=== PATIENT | male | born 1940 | race Hispanic/Latino ===

== ENCOUNTER 2017-08-25 07:01 | Day surgery (SDC) | payer MEDICARE ==
[2017-08-19 11:00] VITALS: BMI 32.5
--- NOTE | 2017-08-25 04:17 | HP ---
REASON FOR ADMISSION: Left heart catheterization, possible angioplasty. BRIEF HISTORY: This is a 76-year-old male with past medical history significant for obstructive sleep apnea; chronic atrial fibrillation in 2004; status post bariatric surgery in 2013; obesity; status post hip surgery in 2003; status post right SFA stent by Dr. Solano in 1998, complaining of dyspnea on exertion, chest pain, and shortness of breath. The patient underwent a stress test that was abnormal, so the patient was scheduled for elective cardiac cath, possible angioplasty. PAST MEDICAL HISTORY: Significant for chronic atrial fibrillation; history of coronary artery disease [address] Bose at [facility] with nonobstructive coronary artery disease; history of permanent pacemaker; history of chronic atrial fibrillation. PAST SURGICAL HISTORY: Significant for permanent pacemaker; history of bariatric surgery, history of obesity; history of right hip surgery; history of pacemaker in 1998; history of PAD, status post lower extremity right SFA stent. SOCIAL HISTORY: Denies any history of alcohol abuse. CURRENT MEDICATIONS: The patient is taking metoprolol tartrate 50 mg twice a day; Eliquis 5 mg b.i.d.; Nexium 40 mg, Eliquis two days ago. ALLERGIES: NO KNOWN DRUG ALLERGIES. REVIEW OF SYSTEMS: As per HPI. PREVIOUS CARDIAC WORKUP: Examination of previous cardiac workup as follows: The patient had a stress test dated 05/20/2017 that showed heterogeneous diffuse hypokinesis, abnormal myocardial perfusion study, ejection fraction of 35%. The patient had echocardiography that showed ejection fraction of 27%, mild mitral and trace tricuspid regurgitation, RV systolic pressure of 26. The patient was offered cardiac catheterization last month, but the patient had some social issues, was diagnosed to have mass and wanted to undergo biopsy after that the patient wanted to have a cath done, so the patient is scheduled for cardiac catheterization today. RECOMMENDATIONS: We will load with aspirin, Plavix. Risks, benefits, and alternatives discussed with the patient. The patient agrees to proceed with cardiac catheterization. PHYSICAL EXAMINATION: VITAL SIGNS: Temperature afebrile, height of the patient is 6 feet, weight of the patient is 240 pounds, body mass index is 32.5 kg/m2, blood pressure 120/80, heart rate 60. HEENT: PERRLA. Extraocular muscles are intact. NECK: Supple. No carotid bruits or thyromegaly. CHEST: Clear to auscultation. HEART: S1 and S2 regular. ABDOMEN: Soft. EXTREMITIES: Clubbing and cyanosis negative. LABORATORY DATA: Blood workup pending. We will review the blood workup and if okay, we will proceed with cardiac catheterization. IMPRESSION: Abnormal stress test; cardiomyopathy; atrial fibrillation; sick sinus syndrome, status post permanent pacemaker; mitral regurgitation and tricuspid regurgitation; obesity, status post bariatric surgery; status post hip surgery; obstructive sleep apnea; noncompliant with medication; history of peripheral artery disease, status post right superficial femoral artery stent. Marianne Martinez MD cc:
[2017-08-25] MEDS ORDERED: Phenylephrine 10 mg/ml Inj ONE (07:08)
[2017-08-25] MEDS ORDERED: Lidocaine 2% Inj (20ml) ONE (07:08)
[2017-08-25] MEDS ORDERED: Iohexol 350mgl/ml 50 ML ONE (07:09)
[2017-08-25] MEDS ORDERED: Nitroglycerin 50mg in D5W 50 MG/250 ML BOTTLE IV ONE (07:09)
[2017-08-25] MEDS ORDERED: Iodixanol 320 MG/ML 200 ML BOTTLE IV ONE (07:09)
[2017-08-25] MEDS ORDERED: Iodixanol 320 MG/ML 100 ML BOTTLE IV ONE (07:09)
[2017-08-25] MEDS ORDERED: Midazolam 2 MG/2 ML VIAL ONE ×2 (07:09→09:18)
[2017-08-25 07:44] LABS: BASO # 0.02 K/mm3 (0.0-2.0); BASO % 0.3 % (0.0-3.0); EOS # 0.1 (0.0-0.7); GRAN # 3.76 (1.4-6.5); GRAN % 62.3 % (50.0-68.0); HEMATOCRIT 41.5 % (42.0-52.0); LYMPH # 1.7 (1.2-3.4); LYMPH % 28.5 % (22.0-35.0); MEAN CELL VOLUME 93.5 fl (80.0-105.0); MEAN CORPUSCULAR HEMOGLOBIN 30.6 pg (25.0-35.0); MEAN CORPUSCULAR HGB CONC 32.8 g/dl (31.0-37.0); MEAN PLATELET VOLUME 11.2 fl (7.0-11.0); MONO # 0.5 (0.1-0.6); MONO % 7.9 % (1.0-6.0); RED CELL DISTRIBUTION WIDTH 13.5 % (11.5-14.5)
[2017-08-25 07:59] LABS: INR 1.05 (0.93-1.08); PARTIAL THROMBOPLASTIN TIME 28.2 Seconds (25.1-36.5)
[2017-08-25 08:39] LABS: BLOOD UREA NITROGEN 14 mg/dL (7-21); CALCIUM 9.3 mg/dL (8.4-10.5); CARBON DIOXIDE 29 mmol/L (21-33); CHLORIDE 104 mmol/L (98-107); CHOLESTEROL 171 mg/dL (130-200); GFR AFRICAN-AMERICAN > 60; GLUCOSE,RANDOM 102 mg/dL (70-110); POTASSIUM 4.4 mmol/L (3.6-5.0); SODIUM 142 mmol/L (132-148)
[2017-08-25] MEDS ORDERED: Bacitracin 500 Units/gm Oint Foilpak UD TOP ONE (09:42)
[2017-08-25] MEDS ORDERED: Sodium Chloride 0.9% 1,000 ML IV SCH (09:45)
--- NOTE | 2017-08-25 09:49 | CARD ---
APPROVED REPORT EKG Measurement Heart [id number] <Conclusion> Demand pacemaker, interpretation is based on intrinsic rhythm Atrial fibrillation with premature ventricular or aberrantly conducted complexes Left bundle branch block Abnormal ECG
[2017-08-25 10:08] VITALS: TEMP 97.7
[2017-08-25 11:28] VITALS: RESP 18
[2017-08-25 11:37] VITALS: O2SAT 95
[2017-08-25] MEDS ORDERED: Bacitracin 500 Units/gm Oint Foilpak UD ONE (12:01)
[2017-08-25 13:07] VITALS: PULSE 60
[2017-08-25 13:08] VITALS: BP 154/99
--- NOTE | 2017-08-25 19:13 | CARD ---
APPROVED REPORT Procedure(s) performed: Left Heart Catheterization HISTORY The patient is a 76 year-old male with a history of : most recent EF: 35%. (EF Method: RADIONUCLIDE), peripheral vascular disease, chronic lung disease, tobacco history() : The patient is a former smoker , hypertension , COPD, FAY, Obesity s/p Gastric By pass in the past, S/p pPM ch, Afib WHITTAKER and abnormal stress test. INDICATION The indication(s) include : positive stress test, chest pain, arrhythmia, atrial fibrillation, dyspnea. CASE TECHNIQUE The patient was brought electively to the Cardiac Catheterization Laboratory in a fasting state and was prepped and draped in a sterile manner. The left wrist was infiltrated with 2% Lidocaine subcutaneous anesthesia. A 6FR GLIDESHEATH ACCESS KIT sheath was inserted into the left radial artery without difficulty. Coronary angiography was performed using coronary diagnostic catheters. The left coronary system was accessed and visualized with a Diagnostic ,5 Fr JL 4 catheter. The right coronary system was accessed and visualized with a Diagnostic ,5 Fr JR 3.5 catheter. The left ventricle was accessed and visualized with a 5 Fr Pigtail 145 (Angled) catheter. Left ventricular/Aortic Valve gradient assessed on pullback. Left ventriculogram was performed in COLVIN projection. Closure device was deployed with a Fr TR Band (Large) without any complications. The patient tolerated the procedure well and there were no complications associated with the procedure. Vessel Analysis The patient's coronary anatomy is right dominant. The left main coronary artery is a large size vessel with diffuse calcification noted throughout this vessel and without significant stenosis. The left main trifurcates to the left anterior descending, circumflex, and ramus. The left anterior descending artery is a medium size vessel with diffuse calcification noted throughout this vessel and without significant stenosis. There is a 55% stenosis in the mid segment. Diffusely diseased The first diagonal branch is a medium size vessel with diffuse calcification noted throughout this vessel and without significant stenosis. The circumflex artery is a large size vessel with diffuse calcification noted throughout this vessel and without significant stenosis. The first obtuse marginal branch is a large size vessel with diffuse calcification noted throughout this vessel and without significant stenosis. The ramus intermedius artery is a medium size vessel with diffuse calcification noted throughout this vessel and without significant stenosis. There is a 55% stenosis in the proximal segment. The right coronary artery is a large size vessel with diffuse calcification noted throughout this vessel and without significant stenosis. There is a 30-40% stenosis in the proximal segment. The right posterior descending artery is a medium size vessel with diffuse calcification noted throughout this vessel and without significant stenosis. There is a 40-50% stenosis . The right posterolateral branch is a large size vessel with diffuse calcification noted throughout this vessel and without significant stenosis. Left Ventricle The left ventricle is mildly enlarged in size with moderately decreased contractility. Non-Ischemic cardiomyopathy. The left ventricular ejection fraction is estimated to be 35%. The left ventricular end diastolic pressure is 18-20 mmHg. There was no gradient across the aortic valve upon pullback. Conclusion Non Obstructive CAD limited to Mid LAD diffusely diseased 55%, and proximal Ramus 55% stenosis. Moderately decreased LV Fx. ef-35%, EDP-18-20 mmof Hg. heavy atherosclerotic [place] in all coronaries. Recommendations Aggressive Medical TherapyCardiac Risk Reduction Program Weight Loss Reduction Program Add, Dig, diuretic, TONI, Coreg, Statin. Resume Eliquis for Afib from tomorrow evening Consider upgrading PPM to AICD. CC; Dr. Tigre sousa MD.
== END 2017-08-25 14:00 | disposition home or self-care (01) ==
LOC: CATH 07:01
PROVIDERS: ATTEND Internal Medicine Cardiovascular Disease
DX: I25.10 Atherosclerotic heart disease of native coronary artery without angina pectoris (principal); I42.9 Cardiomyopathy, unspecified; I48.2 Chronic atrial fibrillation; I73.9 Peripheral vascular disease, unspecified; I08.1 Rheumatic disorders of both mitral and tricuspid valves; G47.33 Obstructive sleep apnea (adult) (pediatric); I10 Essential (primary) hypertension; J44.9 Chronic obstructive pulmonary disease, unspecified; I49.5 Sick sinus syndrome; E66.9 Obesity, unspecified; Z68.32 Body mass index [BMI] 32.0-32.9, adult; Z79.01 Long term (current) use of anticoagulants; Z95.820 Peripheral vascular angioplasty status with implants and grafts; Z91.14 Patient's other noncompliance with medication regimen; Z98.84 Bariatric surgery status; Z95.0 Presence of cardiac pacemaker; Z87.891 Personal history of nicotine dependence
CPT/HCPCS: 36415; 80048; 80061; 85025; 85610; 85730; 86850; 86900; 93005; 93458; 99152; C1769; C1887; J1644 ×2; J1940; J2250; J3010; J7030; J7040; Q9967

== ENCOUNTER 2018-06-01 06:48 | Day surgery (SDC) | payer MEDICARE ==
[2017-08-19 11:00] VITALS: BMI 32.5
[2018-06-01] MEDS ORDERED: Lidocaine PF 2% (5 ml) Inj (For Cardiac Arrhy) ONE (08:18)
[2018-06-01] MEDS ORDERED: Propofol 10 mg/ml Inj (20 ML) ONE ×2 (08:18→08:47)
[2018-06-01] MEDS ORDERED: Etomidate 20 mg/10ml Inj IV ONE (08:18)
[2018-06-01 08:19] VITALS: RESP 18
[2018-06-01] MEDS ORDERED: Sodium Chloride 0.9% 1,000 ML IV SCH (09:15)
[2018-06-01 09:53] VITALS: BP 131/78; PULSE 79; TEMP 97.6; O2SAT 98
== END 2018-06-01 10:37 | disposition home or self-care (01) ==
LOC: ENDO 06:48
PROVIDERS: ATTEND Specialist
DX: K63.5 Polyp of colon (principal); K62.1 Rectal polyp; K57.30 Diverticulosis of large intestine without perforation or abscess without bleeding; K64.8 Other hemorrhoids
CPT/HCPCS: 45380; 45385; 88305; J2704; J7030; J7040